=== PATIENT | female | born 1995 ===

== ENCOUNTER → 2021-04-27 | Outpatient (CLI) | payer OTHER | LOC: MHCPAIN 14:55 | DX: M54.16 Radiculopathy, lumbar region (principal); M54.32 Sciatica, left side; M53.3 Sacrococcygeal disorders, not elsewhere classified; G89.29 Other chronic pain | CPT/HCPCS: G0463 ==

== ENCOUNTER → 2021-05-11 | Outpatient (CLI) | payer OTHER | LOC: MHCPAIN 08:43 | DX: G57.01 Lesion of sciatic nerve, right lower limb (principal); M79.18 Myalgia, other site | CPT/HCPCS: J1040 ==

== ENCOUNTER → 2021-05-24 | Outpatient (CLI) | payer OTHER | LOC: MHCPAIN 09:36 | DX: M53.3 Sacrococcygeal disorders, not elsewhere classified (principal); M54.17 Radiculopathy, lumbosacral region; G57.02 Lesion of sciatic nerve, left lower limb | CPT/HCPCS: G0463 ==

== ENCOUNTER → 2021-08-11 | Outpatient (CLI) | payer OTHER | LOC: MHCPAIN 13:41 | DX: M25.552 Pain in left hip (principal); M79.18 Myalgia, other site; M54.32 Sciatica, left side; M53.3 Sacrococcygeal disorders, not elsewhere classified | CPT/HCPCS: G0463 ==

== ENCOUNTER → 2021-11-08 | Outpatient (CLI) | payer OTHER | LOC: MHCPAIN 13:20 | DX: M54.32 Sciatica, left side (principal); M53.3 Sacrococcygeal disorders, not elsewhere classified; M54.16 Radiculopathy, lumbar region | CPT/HCPCS: G0463 ==